=== PATIENT | female | born 1985 | race Caucasian/White ===

== ENCOUNTER 2023-12-07 21:34 | Emergency (ER) | payer BC ==
[2023-12-07] MEDS: Take Home: Gentamicin 0.3% Ophth Soln 5 ML, 1 Bottle Pack EYEBOTH ONE (21:53)
[2023-12-07] MEDS: Proparacaine 0.5% Ophth Soln 15 ML Bottle EYELF ONE (21:53)
[2023-12-07] MEDS: Fluorescein 1 MG Ophth Strip EYELF ONE (21:53)
== END 2023-12-07 21:56 | disposition home or self-care (01) ==
LOC: VM.ED 21:34
DX: S05.01XA Injury of conjunctiva and corneal abrasion without foreign body, right eye, initial encounter (principal); W55.32XA Struck by other hoof stock, initial encounter
CPT/HCPCS: 99283; A9270-GY; J3490